=== PATIENT | male | born 1935 | race Caucasian/White ===

== ENCOUNTER 2016-11-05 08:03 | Emergency (ER) | payer OTHER ==
--- NOTE | 2016-11-05 10:08 | DIAGNOSTIC IMAGING REPORT ---
PROCEDURE: XR CHEST 2 VIEW INDICATION: SHORTNESS OF BREATH TECHNIQUE: PA and lateral views. COMPARISON: None. FINDINGS: Lungs are clear. Heart and mediastinum are normal. Thorax is normal. IMPRESSION: 1. Negative chest.
--- NOTE | 2016-11-05 11:21 | ED CLINICAL REPORT ---
Clinical Report - Physicians/Mid Levels [facility] [address] [place] [address] 11/05/2016 8:03 Patient: OANH CHONG Arrived- By private vehicle. Historian- patient. HISTORY OF PRESENT ILLNESS Chief Complaint: DYSPNEA. This started yesterday and is still present. It was gradual in onset. The dyspnea is described as mild. No cough, sputum production, fever, sweating episodes or wheezing. No chills, dyspnea on exertion, chest pain or discomfort or calf pain. No orthopnea, anxiety, dizziness or palpitations. The patient has had foot swelling (Chronic, at baseline). Similar symptoms previously: Once. Recent medical care: Not recently seen/assessed. REVIEW OF SYSTEMS The patient has had a nasal discharge and sinus drainage. No enlarged lymph nodes. All systems otherwise negative, except as recorded above. PAST HISTORY Renal Insufficiency. Asthma. Gout. Hypertension. Medications: Allopurinol Oral, daily. AmLODIPine Besylate Oral. Lisinopril Oral (Tablet 40 mg) 1 tablet, daily. Allergies: Codeine. SOCIAL HISTORY Former smoker. PHYSICAL EXAM Appearance: Alert. No acute distress. Eyes: Eyes normal inspection. ENT: Tenderness present to percussion/palpation of the sinuses: mild right and left maxillary tenderness. Pharynx normal. The mucous membranes are not dry. Neck: Normal inspection. No jugular venous distention. CVS: Normal heart rate and rhythm. Heart sounds normal. Respiratory: No respiratory distress. Breath sounds normal. Abdomen: Soft and nontender. No organomegaly. Skin: Skin warm and dry. Normal skin color. No rash. Extremities: No lower extremity edema. Neuro: Oriented X 3. LABS, X-RAYS, AND EKG EKG: EKG time: (0855). No acute process. No acute ischemia. Normal sinus rhythm. Rate: 72. Normal P waves. Normal DEMARCO. Normal QRS complex. Normal axis. Normal ST and T waves, QT and QTc. Prior EKG unavailable. The study has been interpreted contemporaneously by me. The study has been independently viewed by me. The EKG appears to be a good tracing. Chest X-ray: No acute disease. Normal lung markings present. Normal heart size. Mediastinum normal. Great vessels normal. Soft tissues normal. No infiltrate. No fracture. No bony lesion present. Views: PA and lateral. Technique: good. The X-rays were independently viewed by me and interpreted contemporaneously by me. Prior films were not available for comparison. Laboratory Tests: UA-Culture if indicated: (MALOU: 11/05/2016 10:30) ( MsgRcvd 11/05/2016 11:02) Final results Test Result Flag Units (Reference) URINE COLOR YELLOW URINE APPEARANCE CLEAR URINE GLUCOSE NEGATIVE (NEGATIVE) URINE BILIRUBIN NEGATIVE (NEGATIVE) URINE KETONE NEGATIVE (NEGATIVE) URINE SPECIFIC GRAVITY 1.015 (1.010-1.030) URINE PH 6.5 (5.0-8.0) URINE PROTEIN 1+ (NEGATIVE) URINE UROBILINOGEN 0.2 EU/dL (0.2-1.0) URINE NITRITE NEGATIVE (NEGATIVE) URINE BLOOD NEGATIVE (NEGATIVE) URINE LEUK ESTERASE NEGATIVE (NEGATIVE) URINE RBC NONE SEEN rbc/hpf (0-1) URINE WBC RARE wbc/hpf (0-1) URINE EPITHELIAL CELLS NONE SEEN EPI/hpf (0-5) URINE BACTERIA NONE SEEN (NONE SEEN) URINE COMMENT CULT NOT INDICATED URINE CULTURES ARE SET-UP BASED ON THE FOLLOWING CRITERIA:POSITIVE NITRITEPOSITIVE LEUKOCYTE ESTERASEGREATER THAN 10 WHITE BLOOD CELLSMODERATE (2+) OR GREATER BACTERIA CBC w Diff: (MALOU: 11/05/2016 10:30) ( MsgRcvd 11/05/2016 11:19) Final results Test Result Flag Units (Reference) WHITE BLOOD COUNT 11.0 K/uL (4.5-11.5) RED BLOOD COUNT 4.70 M/uL (4.50-5.90) HEMOGLOBIN 12.5 L gm/dL (13.5-17.5) HEMATOCRIT 37.5 L % (41.0-53.0) MEAN CELL VOLUME 80 fL (80-100) MEAN CORPUSCULAR HGB 27 pg (26-34) MEAN CORPUSCULAR HGB CONC 33 g/dL (31-37) RED CELL DISTRIBUTION WIDTH 16.2 H % (11.6-14.8) PLATELET COUNT 363 K/uL (150-400) POLY % 69 % (50-75) BAND % 0 % (0-8) LYMPH 20 L % (25-40) MONO 6 % (3-14) EOSINOPHIL % 5 H % (0-4) BASOPHIL % 0 % (0-2) METAMYELOCYTE % 0 % (0-1) MYELOCYTE 0 % (0-1) OTHER CELL TYPE 0 ANISOCYTOSIS 1+ [id number]: (MALOU: 11/05/2016 10:30) ( [facility] 11/05/2016 10:50) Final results Test Result Flag Units (Reference) D-DIMER QUANTITATIVE 0.61 H ug/mLFEU (0.27-0.52) The primary value of this quantitative assay relates toits negative predictive value (i.e. exclusion) of pulmonaryembolism/deep vein thrombosis/DIC.Elevated levels of d-dimer may also occur with:, age, cancer, inflammation, liver disease,post-op, infection, hematoma, coronary disease, peripheralarteriopathy, bleeding disorders and thrombolytic treatment.Results should be correlated with other clinical andradiological data.Testing Methodology: Latex Immunoassay BNP: (MALOU: 11/05/2016 10:30) ( [facility] [place] 11/05/2016 11:05) Final results Test Result Flag Units (Reference) B-TYPE NATRIURETIC PEPTIDE 32.1 pg/ml (5-100) CMP: (MALOU: 11/05/2016 10:30) ( [facility] [place] 11/05/2016 10:54) Final results Test Result Flag Units (Reference) GLUCOSE 129 H mg/dL (70-110) BUN 30 H mg/dL (7-18) CREATININE 1.8 H mg/dL (0.6-1.3) Estimated GFR 38.49 mL/min Estimated GFR- 46.65 mL/min Note: Persistent reduction over 3 months in eGFR<60 mL/min/1.73 m2 defines CKD. Patients with eGFR values>=60 mL/min/1.73 m2 may also have CKD if evidence ofpersistent proteinuria. Additional information may be foundat www.kidney.org. SODIUM 140 mmol/L (136-145) POTASSIUM 4.7 mmol/L (3.5-5.1) CHLORIDE 102 mmol/L (98-107) CARBON DIOXIDE 31 mmol/L (21-32) CALCIUM 9.3 mg/dL (8.5-10.1) TOTAL PROTEIN 7.4 g/dL (6.4-8.2) ALBUMIN 3.5 g/dL (3.3-5.0) BILIRUBIN, TOTAL 0.4 mg/dL (0.0-1.0) ALKALINE PHOSPHATASE 64 U/L (46-116) AST (SGOT) 38 H U/L (15-37) ALT (SGPT) 39 U/L (12-78) TROPONIN I <0.05 ng/mL (0.00-1.5) TROPONIN REFERENCE RANGE:<0.1 NEGATIVE0.1-1.5 INDETERMINANT>1.5 POSITIVE . PROGRESS AND PROCEDURES Course of Care: 11:19 11/05/16. D dimer mildly elevated, but has CRI and very low pre-test probability. Pt is speaking non-stop in full sentences w/ sPO2 100% on RA. 11/05/2016 11:21 BP: 115/68. HR: 78. RR: 18. O2 saturation: 100%. Vital Signs: have been reviewed as normal. Disposition: Discharged home in good condition. Condition: good. CLINICAL IMPRESSION Acute ethmoidal sinusitis Moderate chronic renal insufficiency. INSTRUCTIONS Your Current Medications: CONTINUE TAKING THE FOLLOWING MEDICATIONS: Allopurinol Oral : daily. AmLODIPine Besylate Oral. Lisinopril Oral : Tablet 40 mg, 1 tablet daily. Prescription Medications: Flonase nasal spray: 2 sprays to each nostril daily. Dispense one (1) unit. No refills. Substitution is permissible Follow-up: Follow up with your doctor in about two days. Call for an appointment. Blood pressure screening was not performed during this visit because the patient has an active diagnosis of hypertension. (Electronically signed by Law Hunt Dr. 11/05/2016 22:50)
--- NOTE | 2016-11-05 11:21 | ED NURSING NOTES ---
Clinical Report - Nurses [facility] [address] [place] [place] [address] 11/05/2016 8:03 Patient: OANH CHONG TRIAGE Acuity: LEVEL 3. Chief Complaint: SHORTNESS OF BREATH. Alert. No acute distress. SEPSIS SCREEN: Sepsis Screen. Negative (no infection suspected/documented). --08:16 Kellie Maxwell R.N. 08:09 11/05/16. BP: 153/96. HR: 90. RR: 22. O2 saturation: 100%. Temp: 98 F. Pain level now: 0/10. --08:16 Kellie Maxwell R.N. Weight: 120.2 kg stated. Height/Length: 72 inches Per Patient. BMI: 36. --08:15 Kellie Maxwell R.N. Medications Allopurinol Oral, daily. AmLODIPine Besylate Oral. Lisinopril Oral (Tablet 40 mg) 1 tablet, daily. --08:12 Kellie Maxwell R.N. Allergies Codeine. --08:12 Kellie Maxwell R.N. History Arrived by private vehicle. Historian: patient. Accompanied by spouse. Primary physician (none). This started today. 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 SOCIAL HX: Former smoker, end date 2013. No alcohol use. NUTRITIONAL RISK ASSESSMENT: The nutritional risk assessment revealed no deficiencies. FUNCTIONAL ASSESSMENT: Functional assessment: no impairments noted. LEARNING NEEDS ASSESSMENT: The learning needs assessment revealed no barriers. FALL RISK ASSESSMENT: Fall risk assessment completed. Risk factors identified include patient age greater than 65 years. Fall interventions initiated. Side rails up x1. Brakes on Bed in low position. Call light in reach of patient. SKIN INTEGRITY ASSESSMENT: Skin integrity risk assessment completed. No skin integrity risk identified. --08:16 Kellie Maxwell R.N. PROBLEMS: Renal Insufficiency. Asthma. Gout. Hypertension. --08:12 Kellie Maxwell R.N. Assessment GENERAL / NEURO / PSYCH: Alert. Oriented X 4. Appears in no acute distress. Patient appears calm and cooperative. RESPIRATORY: Respirations not labored. CVS: Capillary refill less than 2 seconds. GI / : Abdomen nontender. SKIN: Mucous membranes are pink. Skin is warm and dry. --08:16 Kellie Maxwell R.N. Interventions ID band on patient. To treatment room. --08:16 Kellie Maxwell R.N. PHYSICAL ASSESSMENT To room via wheelchair. GENERAL / NEURO / PSYCH: Alert. Oriented X 4. Appears in no acute distress. HEENT: Mucous membranes are pink. RESPIRATORY: No respiratory distress. Respirations not labored. CVS: Capillary refill less than 2 seconds. GI / : Abdomen soft and nontender. SKIN: Skin is warm and dry. --08:24 Kellie Maxwell R.N. NURSING PROGRESS NOTES 08:24 11/05/16. Patient gowned. Two patient identifiers checked. Call light placed in reach. Patient ready for evaluation- chart flagged and ED physician notified. --08:24 Kellie Maxwell R.N. EKG time: (08:55 AM). EKG was performed by a tech and shown to the ED physician. --09:01 Heydi Keys 11:03 11/05/16. BP: 99/68 (large adult cuff) taken on the right arm, via an automated monitor, while sitting. RN notified. HR: 71. RR: 20. O2 saturation: 99% on room air. --11:04 Heydi Keys. DISPOSITION / DISCHARGE Departure time: 11:30 Nov 05 2016. Condition at departure: improved and stable. No learning barriers present. Reviewed medication(s). Prescription(s) given to the patient. The patient was discharged by the physician. He was discharged home and accompanied by spouse. He left the Emergency Department in a wheelchair and via private vehicle. Spouse driving. --12:02 Kellie Maxwell R.N. 12:00 11/05/16. BP: 115/73. HR: 88. RR: 18. O2 saturation: 100% on room air. Temp: 98.2 F (oral). Pain level now: 0/10. --12:02 Kellie Maxwell R.N. Locked/Released at 11/05/2016 12:02 by Kellie Maxwell R.N.
--- NOTE | 2016-11-05 11:21 | ED ORDER SUMMARY ---
..... Patient: OANH CHONG OrderSheet [facility] VisitID: [id number] [address] [place] [address] 81y, M Registration Date/Time: 11/05/2016 ORDER SHEET Weight: 120.2 kg (stated) Allergies: Codeine GENERAL ORDERS: Chest 2V Urgent (08:36 11/05/2016 Whitney Murillo) (Ack 9:02 Dolly) (9:07 MWinterer R.N.) Supervisor Offset Plate Preparation (Continuous) (SOB) (08:36 11/05/2016 Whitney Murillo) (8:38 MWinterer R.N.) CBC w Diff Urgent (08:11/05/2016 Whitney Murillo) (Ack 9:02 Dolly) (10:34 MWinterer R.N.) CMP Urgent (08:11/05/2016 Whitney Murillo) (Ack 9:02 Dolly) (10:34 MWinterer R.N.) UA-Culture if indicated Urgent (08:37 11/05/2016 Whitney Murillo) (Ack 9:02 Dolly) (10:56 MWinterer R.N.) D-Dimer Urgent (08:37 11/05/2016 Whitney Murillo) (Ack 9:02 Dolly) (10:34 MWinterer R.N.) BNP Urgent (08:37 11/05/2016 Whitney Murillo) (Ack 9:02 Dolly) (10:34 MWinterer R.N.) Troponin-I Urgent (08:37 11/05/2016 Whitney Murillo) (Ack 9:02 Dolly) (10:34 MWinterer R.N.) EKG - ER Stat (08:11/05/2016 Whitney Murillo) (9:00 Dolly) Pulse oximeter (08:11/05/2016 Whitney Murillo) (8:38 MWinterer R.N.) Oxygen (2 L/min) (NC) (08:11/05/2016 Whitney Murillo) (8:38 MWinterer R.N.) MEDICATION ORDERS: IV FLUIDS: IV Saline Lock (08:37 11/05/2016 Whitney Murillo) (Ack 8:38 MWinterer R.N.) (Cancelled: Other11:24 MWinterer R.N.) ORDER SHEET NOTES: [Electronically signed by Kellie Maxwell R.N. (12:02 11/05/2016)] [Electronically signed by Law Hunt Dr. (22:50 11/05/2016)] [Electronically locked/signed by Kellie Maxwell R.N. (12:02 11/05/2016)]
--- NOTE | 2016-11-05 11:21 | ED CLINICAL REPORT ---
Clinical Report - Physicians/Mid Levels [facility] [address] [place] [address] 11/05/2016 8:03 Patient: OANH CHONG Arrived- By private vehicle. Historian- patient. HISTORY OF PRESENT ILLNESS Chief Complaint: DYSPNEA. This started yesterday and is still present. It was gradual in onset. The dyspnea is described as mild. No cough, sputum production, fever, sweating episodes or wheezing. No chills, dyspnea on exertion, chest pain or discomfort or calf pain. No orthopnea, anxiety, dizziness or palpitations. The patient has had foot swelling (Chronic, at baseline). Similar symptoms previously: Once. Recent medical care: Not recently seen/assessed. REVIEW OF SYSTEMS The patient has had a nasal discharge and sinus drainage. No enlarged lymph nodes. All systems otherwise negative, except as recorded above. PAST HISTORY Renal Insufficiency. Asthma. Gout. Hypertension. Medications: Allopurinol Oral, daily. AmLODIPine Besylate Oral. Lisinopril Oral (Tablet 40 mg) 1 tablet, daily. Allergies: Codeine. SOCIAL HISTORY Former smoker. PHYSICAL EXAM Appearance: Alert. No acute distress. Eyes: Eyes normal inspection. ENT: Tenderness present to percussion/palpation of the sinuses: mild right and left maxillary tenderness. Pharynx normal. The mucous membranes are not dry. Neck: Normal inspection. No jugular venous distention. CVS: Normal heart rate and rhythm. Heart sounds normal. Respiratory: No respiratory distress. Breath sounds normal. Abdomen: Soft and nontender. No organomegaly. Skin: Skin warm and dry. Normal skin color. No rash. Extremities: No lower extremity edema. Neuro: Oriented X 3. LABS, X-RAYS, AND EKG EKG: EKG time: (0855). No acute process. No acute ischemia. Normal sinus rhythm. Rate: 72. Normal P waves. Normal DEMARCO. Normal QRS complex. Normal axis. Normal ST and T waves, QT and QTc. Prior EKG unavailable. The study has been interpreted contemporaneously by me. The study has been independently viewed by me. The EKG appears to be a good tracing. Chest X-ray: No acute disease. Normal lung markings present. Normal heart size. Mediastinum normal. Great vessels normal. Soft tissues normal. No infiltrate. No fracture. No bony lesion present. Views: PA and lateral. Technique: good. The X-rays were independently viewed by me and interpreted contemporaneously by me. Prior films were not available for comparison. Laboratory Tests: UA-Culture if indicated: (MALOU: 11/05/2016 10:30) ( MsgRcvd 11/05/2016 11:02) Final results Test Result Flag Units (Reference) URINE COLOR YELLOW URINE APPEARANCE CLEAR URINE GLUCOSE NEGATIVE (NEGATIVE) URINE BILIRUBIN NEGATIVE (NEGATIVE) URINE KETONE NEGATIVE (NEGATIVE) URINE SPECIFIC GRAVITY 1.015 (1.010-1.030) URINE PH 6.5 (5.0-8.0) URINE PROTEIN 1+ (NEGATIVE) URINE UROBILINOGEN 0.2 EU/dL (0.2-1.0) URINE NITRITE NEGATIVE (NEGATIVE) URINE BLOOD NEGATIVE (NEGATIVE) URINE LEUK ESTERASE NEGATIVE (NEGATIVE) URINE RBC NONE SEEN rbc/hpf (0-1) URINE WBC RARE wbc/hpf (0-1) URINE EPITHELIAL CELLS NONE SEEN EPI/hpf (0-5) URINE BACTERIA NONE SEEN (NONE SEEN) URINE COMMENT CULT NOT INDICATED URINE CULTURES ARE SET-UP BASED ON THE FOLLOWING CRITERIA:POSITIVE NITRITEPOSITIVE LEUKOCYTE ESTERASEGREATER THAN 10 WHITE BLOOD CELLSMODERATE (2+) OR GREATER BACTERIA CBC w Diff: (MALOU: 11/05/2016 10:30) ( MsgRcvd 11/05/2016 11:19) Final results Test Result Flag Units (Reference) WHITE BLOOD COUNT 11.0 K/uL (4.5-11.5) RED BLOOD COUNT 4.70 M/uL (4.50-5.90) HEMOGLOBIN 12.5 L gm/dL (13.5-17.5) HEMATOCRIT 37.5 L % (41.0-53.0) MEAN CELL VOLUME 80 fL (80-100) MEAN CORPUSCULAR HGB 27 pg (26-34) MEAN CORPUSCULAR HGB CONC 33 g/dL (31-37) RED CELL DISTRIBUTION WIDTH 16.2 H % (11.6-14.8) PLATELET COUNT 363 K/uL (150-400) POLY % 69 % (50-75) BAND % 0 % (0-8) LYMPH 20 L % (25-40) MONO 6 % (3-14) EOSINOPHIL % 5 H % (0-4) BASOPHIL % 0 % (0-2) METAMYELOCYTE % 0 % (0-1) MYELOCYTE 0 % (0-1) OTHER CELL TYPE 0 ANISOCYTOSIS 1+ [id number]: (MALOU: 11/05/2016 10:30) ( [facility] 11/05/2016 10:50) Final results Test Result Flag Units (Reference) D-DIMER QUANTITATIVE 0.61 H ug/mLFEU (0.27-0.52) The primary value of this quantitative assay relates toits negative predictive value (i.e. exclusion) of pulmonaryembolism/deep vein thrombosis/DIC.Elevated levels of d-dimer may also occur with:, age, cancer, inflammation, liver disease,post-op, infection, hematoma, coronary disease, peripheralarteriopathy, bleeding disorders and thrombolytic treatment.Results should be correlated with other clinical andradiological data.Testing Methodology: Latex Immunoassay BNP: (MALOU: 11/05/2016 10:30) ( [facility] [place] 11/05/2016 11:05) Final results Test Result Flag Units (Reference) B-TYPE NATRIURETIC PEPTIDE 32.1 pg/ml (5-100) CMP: (MALOU: 11/05/2016 10:30) ( [facility] [place]/05/[place] 10:54) Final results Test Result Flag Units (Reference) GLUCOSE 129 H mg/dL (70-110) BUN 30 H mg/dL (7-18) CREATININE 1.8 H mg/dL (0.6-1.3) Estimated GFR 38.49 mL/min Estimated GFR- 46.65 mL/min Note: Persistent reduction over 3 months in eGFR<60 mL/min/1.73 m2 defines CKD. Patients with eGFR values>=60 mL/min/1.73 m2 may also have CKD if evidence ofpersistent proteinuria. Additional information may be foundat [email or web address].org. SODIUM 140 mmol/L (136-145) POTASSIUM 4.7 mmol/L (3.5-5.1) CHLORIDE 102 mmol/L (98-107) CARBON DIOXIDE 31 mmol/L (21-32) CALCIUM 9.3 mg/dL (8.5-10.1) TOTAL PROTEIN 7.4 g/dL (6.4-8.2) ALBUMIN 3.5 g/dL (3.3-5.0) BILIRUBIN, TOTAL 0.4 mg/dL (0.0-1.0) ALKALINE PHOSPHATASE 64 U/L (46-116) AST (SGOT) 38 H U/L (15-37) ALT (SGPT) 39 U/L (12-78) TROPONIN I <0.05 ng/mL (0.00-1.5) TROPONIN REFERENCE RANGE:<0.1 NEGATIVE0.1-1.5 INDETERMINANT>1.5 POSITIVE . PROGRESS AND PROCEDURES Course of Care: 11:19 11/05/16. D dimer mildly elevated, but has CRI and very low pre-test probability. Pt is speaking non-stop in full sentences w/ sPO2 100% on RA. 11/05/2016 11:21 BP: 115/68. HR: 78. RR: 18. O2 saturation: 100%. Vital Signs: have been reviewed as normal. Disposition: Discharged home in good condition. Condition: good. CLINICAL IMPRESSION Acute ethmoidal sinusitis Moderate chronic renal insufficiency. INSTRUCTIONS Your Current Medications: CONTINUE TAKING THE FOLLOWING MEDICATIONS: Allopurinol Oral : daily. AmLODIPine Besylate Oral. Lisinopril Oral : Tablet 40 mg, 1 tablet daily. Prescription Medications: Flonase nasal spray: 2 sprays to each nostril daily. Dispense one (1) unit. No refills. Substitution is permissible Follow-up: Follow up with your doctor in about two days. Call for an appointment. Blood pressure screening was not performed during this visit because the patient has an active diagnosis of hypertension. (Electronically signed by Law Hunt Dr. 11/05/2016 22:50)
--- NOTE | 2016-11-05 11:21 | ED ORDER SUMMARY ---
..... Patient: OANH CHONG OrderSheet [facility] VisitID: [id number] [address] [place] [address] 81y, M Registration Date/Time: 11/05/2016 ORDER SHEET Weight: 120.2 kg (stated) Allergies: Codeine GENERAL ORDERS: Chest 2V Urgent (08:36 11/05/2016 Whitney Murillo) (Ack 9:02 Dolly) (9:07 MWinterer R.N.) License Examiner (Continuous) (SOB) (08:36 11/05/2016 Whitney Murillo) (8:38 MWinterer R.N.) CBC w Diff Urgent (08:11/05/2016 Whitney Murillo) (Ack 9:02 Dolly) (10:34 MWinterer R.N.) CMP Urgent (08:11/05/2016 Whitney Murillo) (Ack 9:02 Dolly) (10:34 MWinterer R.N.) UA-Culture if indicated Urgent (08:37 11/05/2016 Whitney Murillo) (Ack 9:02 Dolly) (10:56 MWinterer R.N.) D-Dimer Urgent (08:37 11/05/2016 Whitney Murillo) (Ack 9:02 Dolly) (10:34 MWinterer R.N.) BNP Urgent (08:37 11/05/2016 Whitney Murillo) (Ack 9:02 Dolly) (10:34 MWinterer R.N.) Troponin-I Urgent (08:37 11/05/2016 Whitney Murillo) (Ack 9:02 Dolly) (10:34 MWinterer R.N.) EKG - ER Stat (08:11/05/2016 Whitney Murillo) (9:00 Dolly) Pulse oximeter (08:11/05/2016 Whitney Murillo) (8:38 MWinterer R.N.) Oxygen (2 L/min) (NC) (08:11/05/2016 Whitney Murillo) (8:38 MWinterer R.N.) MEDICATION ORDERS: IV FLUIDS: IV Saline Lock (08:37 11/05/2016 Whitney Murillo) (Ack 8:38 MWinterer R.N.) (Cancelled: Other11:24 MWinterer R.N.) ORDER SHEET NOTES: [Electronically signed by Kellie Maxwell R.N. (12:02 11/05/2016)] [Electronically signed by Law Hunt Dr. (22:50 11/05/2016)] [Electronically locked/signed by Kellie Maxwell R.N. (12:02 11/05/2016)]
--- NOTE | 2016-11-05 11:21 | ED NURSING NOTES ---
Clinical Report - Nurses [facility] [address] [place] [address] 11/05/2016 8:03 Patient: OANH CHONG TRIAGE Acuity: LEVEL 3. Chief Complaint: SHORTNESS OF BREATH. Alert. No acute distress. SEPSIS SCREEN: Sepsis Screen. Negative (no infection suspected/documented). --08:16 Kellie Maxwell R.N. 08:09 11/05/16. BP: 153/96. HR: 90. RR: 22. O2 saturation: 100%. Temp: 98 F. Pain level now: 0/10. --08:16 Kellie Maxwell R.N. Weight: 120.2 kg stated. Height/Length: 72 inches Per Patient. BMI: 36. --08:15 Kellie Maxwell R.N. Medications Allopurinol Oral, daily. AmLODIPine Besylate Oral. Lisinopril Oral (Tablet 40 mg) 1 tablet, daily. --08:12 Kellie Maxwell R.N. Allergies Codeine. --08:12 Kellie Maxwell R.N. History Arrived by private vehicle. Historian: patient. Accompanied by spouse. Primary physician (none). This started today. 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 SOCIAL HX: Former smoker, end date 2013. No alcohol use. NUTRITIONAL RISK ASSESSMENT: The nutritional risk assessment revealed no deficiencies. FUNCTIONAL ASSESSMENT: Functional assessment: no impairments noted. LEARNING NEEDS ASSESSMENT: The learning needs assessment revealed no barriers. FALL RISK ASSESSMENT: Fall risk assessment completed. Risk factors identified include patient age greater than 65 years. Fall interventions initiated. Side rails up x1. Brakes on Bed in low position. Call light in reach of patient. SKIN INTEGRITY ASSESSMENT: Skin integrity risk assessment completed. No skin integrity risk identified. --08:16 Kellie Maxwell R.N. PROBLEMS: Renal Insufficiency. Asthma. Gout. Hypertension. --08:12 Kellie Maxwell R.N. Assessment GENERAL / NEURO / PSYCH: Alert. Oriented X 4. Appears in no acute distress. Patient appears calm and cooperative. RESPIRATORY: Respirations not labored. CVS: Capillary refill less than 2 seconds. GI / : Abdomen nontender. SKIN: Mucous membranes are pink. Skin is warm and dry. --08:16 Kellie Maxwell R.N. Interventions ID band on patient. To treatment room. --08:16 Kellie Maxwell R.N. PHYSICAL ASSESSMENT To room via wheelchair. GENERAL / NEURO / PSYCH: Alert. Oriented X 4. Appears in no acute distress. HEENT: Mucous membranes are pink. RESPIRATORY: No respiratory distress. Respirations not labored. CVS: Capillary refill less than 2 seconds. GI / : Abdomen soft and nontender. SKIN: Skin is warm and dry. --08:24 Kellie Maxwell R.N. NURSING PROGRESS NOTES 08:24 11/05/16. Patient gowned. Two patient identifiers checked. Call light placed in reach. Patient ready for evaluation- chart flagged and ED physician notified. --08:24 Kellie Maxwell R.N. EKG time: (08:55 AM). EKG was performed by a tech and shown to the ED physician. --09:01 Heydi Keys 11:03 11/05/16. BP: 99/68 (large adult cuff) taken on the right arm, via an automated monitor, while sitting. RN notified. HR: 71. RR: 20. O2 saturation: 99% on room air. --11:04 Heydi Keys. DISPOSITION / DISCHARGE Departure time: 11:30 Nov 05 2016. Condition at departure: improved and stable. No learning barriers present. Reviewed medication(s). Prescription(s) given to the patient. The patient was discharged by the physician. He was discharged home and accompanied by spouse. He left the Emergency Department in a wheelchair and via private vehicle. Spouse driving. --12:02 Kellie Maxwell R.N. 12:00 11/05/16. BP: 115/73. HR: 88. RR: 18. O2 saturation: 100% on room air. Temp: 98.2 F (oral). Pain level now: 0/10. --12:02 Kellie Maxwell R.N. Locked/Released at 11/05/2016 12:02 by Kellie Maxwell R.N.
--- NOTE | 2016-11-05 22:50 | ED DISCHARGE INSTRUCTIONS ---
Patient: OANH CHONG General Instructions [facility] VisitID: [id number] [place] [address] 81y, M Registration Date/Time: 11/05/2016 Acute ethmoidal sinusitis Moderate chronic renal insufficiency. INSTRUCTIONS Your Current Medications: CONTINUE TAKING THE FOLLOWING MEDICATIONS: Allopurinol Oral : daily. AmLODIPine Besylate Oral. Lisinopril Oral : Tablet 40 mg, 1 tablet daily. Prescription Medications: Flonase nasal spray: 2 sprays to each nostril daily. Dispense one (1) unit. No refills. Substitution is permissible Follow-up: Follow up with your doctor in about two days. Call for an appointment. Blood pressure screening was not performed during this visit because the patient has an active diagnosis of hypertension. ADDITIONAL INFORMATION Sinusitis [No Abx Tx] The sinuses are air-filled spaces within the bones of the face. They connect to the inside of the nose. Sinusitis is an inflammation of the tissue lining the sinus cavity. Sinus inflammation can occur during a cold or hay-fever (allergies to pollens and other particles in the air) and cause symptoms of sinus congestion and fullness and perhaps a low-grade fever. This does not require antibiotic treatment. Home Care: Drink plenty of water, hot tea, and other liquids to stay well hydrated. This thins the mucus and promotes sinus drainage. Apply heat to the painful areas of the face. Use a towel soaked in hot water. Or, big data engineer the shower and direct the hot spray onto your face. This is a good way to inhale warm water vapor and get heat on your face at the same time. (Cover your mouth and nose with your hands so you can still breathe as you do this.) Use a vaporizer with products such as Vicks VapoRub (contains menthol) at night. Suck on peppermint, menthol or eucalyptus hard candies during the day. An expectorant containing guaifenesin (such as Robitussin), helps to thin the mucus and promote drainage from the sinuses. Pwif-ert-pvuxget decongestants may be used unless a similar medicine was prescribed. Nasal sprays work the fastest. Use one that contains phenylephrine (New-synephrine, Sinex and others) or oxymetazoline (Afrin). First blow the nose gently to remove mucus, then apply the drops. Do not use these medicines more often than directed on the label or for more than three days or symptoms may worsen. You may also use tablets containing pseudoephedrine (Sudafed). Many sinus remedies combine ingredients, which may increase side effects. Read the labels or ask the pharmacist for help. NOTE: Persons with high blood pressure should not use decongestants. They can raise blood pressure. Antihistamines are useful if allergies are a cause of your sinusitis. The mildest one is chlorpheniramine (available without a prescription). The dose for adults is 8-12mg three times a day. [NOTE: Do not use chlorpheniramine if you have glaucoma or if you are a man with trouble urinating due to an enlarged prostate.] Claritin (loratidine) is an antihistamine that causes less drowsiness and is a good alternative for daytime use. When allergies are the cause for sinusitis, a saline nasal rinse may give relief. Saline nasal rinse reduces swelling and clears excess mucus. This allows sinuses to drain. Pre-packaged kits are available at most drug stores. These contain pre-mixed salt packets and an irrigation device. You may use acetaminophen (Tylenol) or ibuprofen (Motrin, Advil) to control pain, unless another pain medicine was prescribed. [ NOTE: If you have chronic liver or kidney disease or ever had a stomach ulcer, talk with your doctor before using these medicines.] (Aspirin should never be used in anyone under 18 years of age who is ill with a fever. It may cause severe liver damage.) Follow Up with your doctor or this facility in one week or as instructed by our staff if not improving. Get Prompt Medical Attention if any of the following occur: Green or yellow drainage from the nose or into the back of the throat (post-nasal drip) Worsening sinus pain or headache Stiff neck Unusual drowsiness, confusion or not acting like your normal self Swelling of the forehead or eyelids Vision problems including blurred or double vision Fever of 100.4F (38C) or higher, or as directed by your healthcare provider Seizure Fluticasone Propionate Nasal spray, solution What is this medicine? FLUTICASONE (floo TIK a sone) is a corticosteroid. It helps decrease inflammation in your nose. This medicine is used to treat the symptoms of allergies like sneezing, itching, and runny or stuffy nose. How should I use this medicine? This medicine is for use in the nose. Follow the directions on your prescription label. This medicine works best if used regularly. Do not use more often than directed. Make sure that you are using your nasal spray correctly. Ask you doctor or health care provider if you have any questions. Talk to your clinical practice consultant regarding the use of this medicine in children. While this drug may be prescribed for children as young as 4 years old for selected conditions, precautions do apply. What side effects may I notice from receiving this medicine? Side effects that you should report to your doctor or health childcare attendant as soon as possible: allergic reactions like skin rash, itching or hives, swelling of the face, lips, or tongue changes in vision flu-like symptoms white patches or sores in the mouth or nose Side effects that usually do not require medical attention (report to your doctor or health childcare attendant if they continue or are bothersome): burning or irritation inside the nose or throat cough headache nosebleed unusual taste or smell What may interact with this medicine? ketoconazole metyrapone some medicines for HIV vaccines What if I miss a dose? If you miss a dose, use it as soon as you remember. If it is almost time for your next dose, use only that dose and continue with your regular schedule. Do not use double or extra doses. Where should I keep my medicine? Keep out of the reach of children. Store at room temperature between 15 and 30 degrees C (59 and 86 degrees F). Throw away any unused medicine after the expiration date. What should I tell my health care provider before I take this medicine? They need to know if you have any of these conditions: infection, like tuberculosis, herpes, or fungal infection recent surgery on nose or sinuses taking corticosteroid by mouth an unusual or allergic reaction to fluticasone, steroids, other medicines, foods, dyes, or preservatives or trying to get breast-feeding What should I watch for while using this medicine? Visit your doctor or health childcare attendant for regular checks on your progress. Some symptoms may improve within 12 hours after starting use. Check with your doctor or health childcare attendant if there is no improvement in your condition after 3 weeks of use. Do not come in contact with people who have chickenpox or the measles while you are taking this medicine. If you do, call your doctor right away. You have been given the following additional information: Sinusitis, No Abx Fluticasone Propionate Nasal spray, solution (Electronically signed by Law Hunt Dr. 11/05/2016 22:50)
--- NOTE | 2016-11-05 22:50 | ED DISCHARGE INSTRUCTIONS ---
Patient: OANH CHONG General Instructions [facility] VisitID: [id number] [place] [address] 81y, M Registration Date/Time: 11/05/2016 Acute ethmoidal sinusitis Moderate chronic renal insufficiency. INSTRUCTIONS Your Current Medications: CONTINUE TAKING THE FOLLOWING MEDICATIONS: Allopurinol Oral : daily. AmLODIPine Besylate Oral. Lisinopril Oral : Tablet 40 mg, 1 tablet daily. Prescription Medications: Flonase nasal spray: 2 sprays to each nostril daily. Dispense one (1) unit. No refills. Substitution is permissible Follow-up: Follow up with your doctor in about two days. Call for an appointment. Blood pressure screening was not performed during this visit because the patient has an active diagnosis of hypertension. ADDITIONAL INFORMATION Sinusitis [No Abx Tx] The sinuses are air-filled spaces within the bones of the face. They connect to the inside of the nose. Sinusitis is an inflammation of the tissue lining the sinus cavity. Sinus inflammation can occur during a cold or hay-fever (allergies to pollens and other particles in the air) and cause symptoms of sinus congestion and fullness and perhaps a low-grade fever. This does not require antibiotic treatment. Home Care: Drink plenty of water, hot tea, and other liquids to stay well hydrated. This thins the mucus and promotes sinus drainage. Apply heat to the painful areas of the face. Use a towel soaked in hot water. Or, standards analyst the shower and direct the hot spray onto your face. This is a good way to inhale warm water vapor and get heat on your face at the same time. (Cover your mouth and nose with your hands so you can still breathe as you do this.) Use a vaporizer with products such as Vicks VapoRub (contains menthol) at night. Suck on peppermint, menthol or eucalyptus hard candies during the day. An expectorant containing guaifenesin (such as Robitussin), helps to thin the mucus and promote drainage from the sinuses. [id number] decongestants may be used unless a similar medicine was prescribed. Nasal sprays work the fastest. Use one that contains phenylephrine (New-synephrine, Sinex and others) or oxymetazoline (Afrin). First blow the nose gently to remove mucus, then apply the drops. Do not use these medicines more often than directed on the label or for more than three days or symptoms may worsen. You may also use tablets containing pseudoephedrine (Sudafed). Many sinus remedies combine ingredients, which may increase side effects. Read the labels or ask the pharmacist for help. NOTE: Persons with high blood pressure should not use decongestants. They can raise blood pressure. Antihistamines are useful if allergies are a cause of your sinusitis. The mildest one is chlorpheniramine (available without a prescription). The dose for adults is 8-12mg three times a day. [NOTE: Do not use chlorpheniramine if you have glaucoma or if you are a man with trouble urinating due to an enlarged prostate.] Claritin (loratidine) is an antihistamine that causes less drowsiness and is a good alternative for daytime use. When allergies are the cause for sinusitis, a saline nasal rinse may give relief. Saline nasal rinse reduces swelling and clears excess mucus. This allows sinuses to drain. Pre-packaged kits are available at most drug stores. These contain pre-mixed salt packets and an irrigation device. You may use acetaminophen (Tylenol) or ibuprofen (Motrin, Advil) to control pain, unless another pain medicine was prescribed. [ NOTE: If you have chronic liver or kidney disease or ever had a stomach ulcer, talk with your doctor before using these medicines.] (Aspirin should never be used in anyone under 18 years of age who is ill with a fever. It may cause severe liver damage.) Follow Up with your doctor or this facility in one week or as instructed by our staff if not improving. Get Prompt Medical Attention if any of the following occur: Green or yellow drainage from the nose or into the back of the throat (post-nasal drip) Worsening sinus pain or headache Stiff neck Unusual drowsiness, confusion or not acting like your normal self Swelling of the forehead or eyelids Vision problems including blurred or double vision Fever of 100.4F (38C) or higher, or as directed by your healthcare provider Seizure Fluticasone Propionate Nasal spray, solution What is this medicine? FLUTICASONE (floo TIK a sone) is a corticosteroid. It helps decrease inflammation in your nose. This medicine is used to treat the symptoms of allergies like sneezing, itching, and runny or stuffy nose. How should I use this medicine? This medicine is for use in the nose. Follow the directions on your prescription label. This medicine works best if used regularly. Do not use more often than directed. Make sure that you are using your nasal spray correctly. Ask you doctor or health care provider if you have any questions. Talk to your clinical education coordinator regarding the use of this medicine in children. While this drug may be prescribed for children as young as 4 years old for selected conditions, precautions do apply. What side effects may I notice from receiving this medicine? Side effects that you should report to your doctor or health career representative as soon as possible: allergic reactions like skin rash, itching or hives, swelling of the face, lips, or tongue changes in vision flu-like symptoms white patches or sores in the mouth or nose Side effects that usually do not require medical attention (report to your doctor or health career representative if they continue or are bothersome): burning or irritation inside the nose or throat cough headache nosebleed unusual taste or smell What may interact with this medicine? ketoconazole metyrapone some medicines for HIV vaccines What if I miss a dose? If you miss a dose, use it as soon as you remember. If it is almost time for your next dose, use only that dose and continue with your regular schedule. Do not use double or extra doses. Where should I keep my medicine? Keep out of the reach of children. Store at room temperature between 15 and 30 degrees C (59 and 86 degrees F). Throw away any unused medicine after the expiration date. What should I tell my health care provider before I take this medicine? They need to know if you have any of these conditions: infection, like tuberculosis, herpes, or fungal infection recent surgery on nose or sinuses taking corticosteroid by mouth an unusual or allergic reaction to fluticasone, steroids, other medicines, foods, dyes, or preservatives or trying to get breast-feeding What should I watch for while using this medicine? Visit your doctor or health career representative for regular checks on your progress. Some symptoms may improve within 12 hours after starting use. Check with your doctor or health career representative if there is no improvement in your condition after 3 weeks of use. Do not come in contact with people who have chickenpox or the measles while you are taking this medicine. If you do, call your doctor right away. You have been given the following additional information: Sinusitis, No Abx Fluticasone Propionate Nasal spray, solution (Electronically signed by Law Hunt Dr. 11/05/2016 22:50)
--- NOTE | 2016-11-05 22:51 | ED MAR SUMMARY ---
..... Medication Administration Record [facility] [address] [place], [place] [id number] Patient: OANH CHONG Visit ID: [id number] 81y, M Weight: 120.2 kg Height/Length: 72 in BMI: 36 ALLERGIES: Codeine
--- NOTE | 2016-11-05 22:51 | ED MED RECONCILIATION SUMMARY ---
Patient: OANH CHONG Medication Reconciliation Report [facility] VisitID: [id number] [address] [place] [address] 81y, M Registration Date/Time: 11/05/2016 Weight: 120.2 kg Height/Length: 72 in. BMI: 36.0 ALLERGIES: Codeine The patient's Home Medications are listed below: CONTINUE TAKING THE FOLLOWING MEDICATIONS: Allopurinol Oral, daily AmLODIPine Besylate Oral Lisinopril Oral (40 mg) 1 tablet, daily The source(s) of the original Home Medication information: Not obtained. The following Medications were given to the patient in the Emergency Department: None. The following Medications were prescribed to the patient: Flonase nasal spray: 2 sprays to each nostril daily. Dispense one (1) unit. No refills. Substitution is permissible -- Law Hunt Dr.
--- NOTE | 2016-11-05 22:51 | ED MAR SUMMARY ---
..... Medication Administration Record [facility] [address] [place], [place] [id number] Patient: OANH CHONG Visit ID: [id number] 81y, M Weight: 120.2 kg Height/Length: 72 in BMI: 36 ALLERGIES: Codeine
--- NOTE | 2016-11-05 22:51 | ED MED RECONCILIATION SUMMARY ---
Patient: OANH CHONG Medication Reconciliation Report [facility] VisitID: [id number] [address] [place] [address] 81y, M Registration Date/Time: 11/05/2016 Weight: 120.2 kg Height/Length: 72 in. BMI: 36.0 ALLERGIES: Codeine The patient's Home Medications are listed below: CONTINUE TAKING THE FOLLOWING MEDICATIONS: Allopurinol Oral, daily AmLODIPine Besylate Oral Lisinopril Oral (40 mg) 1 tablet, daily The source(s) of the original Home Medication information: Not obtained. The following Medications were given to the patient in the Emergency Department: None. The following Medications were prescribed to the patient: Flonase nasal spray: 2 sprays to each nostril daily. Dispense one (1) unit. No refills. Substitution is permissible -- Law Hunt Dr.
== END 2016-11-05 11:30 | disposition home or self-care (01) ==
LOC: ED SRH 08:03
DX: J01.20 Acute ethmoidal sinusitis, unspecified (principal); I12.9 Hypertensive chronic kidney disease with stage 1 through stage 4 chronic kidney disease, or unspecified chronic kidney disease; N18.9 Chronic kidney disease, unspecified; Z87.891 Personal history of nicotine dependence; Z88.5 Allergy status to narcotic agent
CPT/HCPCS: 90004; 90074; 90100; 90616; 91320; 91556; 91643; 95059